=== PATIENT | male | born 1945 | race Caucasian/White ===

== ENCOUNTER 2018-01-27 17:07 | Inpatient (IN) | payer MEDICARE ==
[~2018-01-27] VITALS: Ht 182.9 cm; Wt 78.3 kg
[2018-01-27] MEDS ORDERED: ACETAMINOPHEN 325 MG TABLET PO ONE (18:00)
[2018-01-27] MEDS ORDERED: SODIUM CHLORIDE 0.9% 1,000ML IVBOLUS ONE ×2 (18:00→19:00)
[2018-01-27] MEDS ORDERED: SODIUM CHLORIDE FLUSH 10ML SYR IVF ONE (18:00)
[2018-01-27 18:08] LABS: BASOPHILS # (AUTO) 0.01 x10^3/uL (0-0.1); BASOPHILS % (AUTO) 0 % (0-1); EOSINOPHILS % (AUTO) 0 % (1-7); LYMPHOCYTES % (AUTO) 5 % (22-44); MD NO; MEAN CORPUSCULAR HEMOGLOBIN 32.1 pg (27.5-34.5); MEAN CORPUSCULAR HGB CONC 34.2 g/dL (33.2-36.2); MEAN CORPUSCULAR VOLUME 93.8 fL (81-97); MEAN PLATELET VOLUME 9.3 fL (7.4-10.4); MONOCYTES # (AUTO) 0.29 x10^3/uL (0.2-0.8); MONOCYTES % (AUTO) 4 % (2-9); NEUTROPHILS # (AUTO) 6.81 x10^3/uL (1.8-6.8); NEUTROPHILS % (AUTO) 91 % (42-75); PLATELET COUNT 161 x10^3/uL (130-400); RED BLOOD COUNT 4.77 x10^6/uL (4.38-5.82); RED CELL DISTRIBUTION WIDTH 13.2 % (9.4-14.8)
[2018-01-27 18:20] LABS: ANION GAP 9 mmol/L (5-15); CALCIUM 8.5 mg/dL (8.5-10.1); CHLORIDE 97 mmol/L (98-107); CREATININE 1.47 mg/dL (0.7-1.3)
[2018-01-27 18:24] LABS: TROPONIN I < 0.015 ng/mL (0.000-0.045)
[2018-01-27] MEDS ORDERED: ACETAMINOPHEN 325 MG TABLET ONE (18:26)
[2018-01-27 19:00] LABS: ALBUMIN 2.8 g/dL (3.4-5.0)
[2018-01-27] MEDS ORDERED: KETOROLAC 30 MG/1 ML IVPush ONE ×2 (19:00)
[2018-01-27] MEDS ORDERED: AZITHROMYCIN 500 MG in SODIUM CHLORIDE 0.9% 250 ML IV ONE (19:00)
[2018-01-27] MEDS ORDERED: CEFTRIAXONE PMX 1GM/50ML 50 ML IV ONE (19:00)
[2018-01-27] MEDS ORDERED: CEFTRIAXONE PMX 1GM/50ML 50 ML ONE (19:43)
[2018-01-27] MEDS ORDERED: KETOROLAC 30 MG/1 ML ONE (19:43)
[2018-01-27] MEDS: PLEASE ENTER ALLERGIES MC SCH (20:14)
[2018-01-27] MEDS ORDERED: GUAIFENESIN/DM 200-20MG, 10ML UDC PO PRN (20:30)
[2018-01-27] MEDS ORDERED: ONDANSETRON 2MG/ML, 2ML IVPush PRN (20:30)
[2018-01-27] MEDS ORDERED: BISACODYL 10 MG SUPP PR PRN (20:30)
[2018-01-27] MEDS ORDERED: POLYETHYLENE GLYCOL 17 GM PACKET PO PRN (20:30)
[2018-01-27] MEDS ORDERED: ACETAMINOPHEN 325 MG TABLET PO PRN (20:30)
[2018-01-27 21:33] VITALS: BP 118/82
[2018-01-27] MEDS: SODIUM CHLORIDE 0.9% 1,000 ML IV SCH (22:45)
[2018-01-27] MEDS: AZITHROMYCIN 500 MG in SODIUM CHLORIDE 0.9% 250 ML IV SCH (22:49)
[2018-01-28] MEDS: OSELTAMIVIR 75 MG CAPSULE PO SCH ×3 (01:07→19:57)
[2018-01-28] MEDS: HEPARIN 5,000 UNITS/ML, 1ML SQ SCH ×4 (01:07→23:18)
[2018-01-28] MEDS: PLEASE ENTER ALLERGIES MC SCH (01:10)
[2018-01-28 03:33] VITALS: BP 118/83
[2018-01-28 05:55] LABS: ANION GAP 7 mmol/L (5-15); CALCIUM 7.1 mg/dL (8.5-10.1); CHLORIDE 105 mmol/L (98-107)
[2018-01-28 06:00] LABS: ALANINE AMINOTRANSFERASE 19 U/L (12-78); ALKALINE PHOSPHATASE 64 U/L (45-117); BILIRUBIN,TOTAL 0.6 mg/dL (0.2-1.0); CREATININE 1.23 mg/dL (0.7-1.3)
[2018-01-28 06:20] LABS: BASOPHILS # (AUTO) 0.01 x10^3/uL (0-0.1); BASOPHILS % (AUTO) 0 % (0-1); EOSINOPHILS % (AUTO) 0 % (1-7); LYMPHOCYTES # (AUTO) 0.59 x10^3/uL (1-3.4); LYMPHOCYTES % (AUTO) 11 % (22-44); MD NO; MEAN CORPUSCULAR HEMOGLOBIN 31.9 pg (27.5-34.5); MEAN CORPUSCULAR HGB CONC 34.2 g/dL (33.2-36.2); MEAN CORPUSCULAR VOLUME 93.5 fL (81-97); MEAN PLATELET VOLUME 9.6 fL (7.4-10.4); MONOCYTES # (AUTO) 0.53 x10^3/uL (0.2-0.8); MONOCYTES % (AUTO) 10 % (2-9); NEUTROPHILS # (AUTO) 4.18 x10^3/uL (1.8-6.8); NEUTROPHILS % (AUTO) 79 % (42-75); PLATELET COUNT 135 x10^3/uL (130-400); RED BLOOD COUNT 4.14 x10^6/uL (4.38-5.82); RED CELL DISTRIBUTION WIDTH 13.5 % (9.4-14.8)
[2018-01-28 07:05] VITALS: BP 110/73
[2018-01-28] MEDS: SODIUM CHLORIDE 0.9% 1,000 ML IV SCH (09:58)
[2018-01-28] MEDS: SENNA/DOCUSATE TABLET PO SCH (09:58)
[2018-01-28] MEDS: GUAIFENESIN 200 MG TABLET PO SCH ×2 (12:00→19:58)
[2018-01-28 13:10] VITALS: BP 120/81
[2018-01-28 16:42] VITALS: BP 130/85
[2018-01-28] MEDS ORDERED: CEFTRIAXONE 1,000 MG in DEXTROSE 5% 50 ML IV SCH (20:00)
[2018-01-28] MEDS ORDERED: CEFTRIAXONE PMX 1GM/50ML 50 ML IV SCH (20:00)
[2018-01-28 21:07] VITALS: BP 127/76
[2018-01-28] MEDS: AZITHROMYCIN 500 MG in SODIUM CHLORIDE 0.9% 250 ML IV SCH (23:18)
[2018-01-29 02:09] VITALS: BP 106/66
[2018-01-29 07:50] VITALS: BP 122/75
[2018-01-29] MEDS: OSELTAMIVIR 75 MG CAPSULE PO SCH (09:10)
[2018-01-29] MEDS: HEPARIN 5,000 UNITS/ML, 1ML SQ SCH ×2 (09:10→12:15)
[2018-01-29] MEDS: SENNA/DOCUSATE TABLET PO SCH (09:11)
[2018-01-29] MEDS: GUAIFENESIN 200 MG TABLET PO SCH (09:11)
[2018-01-29 14:26] VITALS: BP 146/87
[2018-01-29] MEDS ORDERED: AZIT500T PO (16:29)
[2018-01-29] MEDS ORDERED: GUAI200T3 PO (16:29)
[2018-01-29] MEDS ORDERED: OSEL75CA PO (16:29)
[2018-01-29] MEDS ORDERED: CEFD300C37 PO (16:29)
[2018-01-29 17:19] VITALS: BP 156/76
== END 2018-01-29 17:50 | disposition home or self-care (01) | DRG 871 ==
LOC: ED 19:54 → EDIP 20:01 → 4NOR 21:28
PROVIDERS: ADMIT Internal Medicine; ATTEND Internal Medicine
DX: A41.9 Sepsis, unspecified organism (principal); J10.00 Influenza due to other identified influenza virus with unspecified type of pneumonia; E44.0 Moderate protein-calorie malnutrition; N17.9 Acute kidney failure, unspecified; E86.0 Dehydration; E87.1 Hypo-osmolality and hyponatremia; Z88.1 Allergy status to other antibiotic agents; Z68.23 Body mass index [BMI] 23.0-23.9, adult
CPT/HCPCS: 36415; 80048; 80053; 82040; 83605; 83880; 84484; 85025; 87040; 87070; 87205; 93005; 96361; 96374; J0456; J0696; J1644; J1885; J7030; J7050